=== PATIENT | female | born 1955 | race Caucasian/White ===

== ENCOUNTER 2017-07-16 16:40 | Emergency (ER) | payer BC ==
[~2017-07-16] VITALS: Ht 160 cm; Wt 52.2 kg
--- NOTE | 2017-07-16 16:57 | NUR ---
PATIENT WAS SEEN BY DR MORALES. SHE IS A/A/O X3 IN NO DISTRESS. DC AND FOLLOW UP INSTRUCTIONS GIVEN AND EXPLAINED TO PATIENT WHO STATES SHE UNDERSTANDS ALL INSTRUCTIONS.
== END 2017-07-16 16:58 | disposition home or self-care (01) ==
LOC: ER 16:42
DX: T59.891A Toxic effect of other specified gases, fumes and vapors, accidental (unintentional), initial encounter (principal)
CPT/HCPCS: A4663